=== PATIENT | male | born 1935 | race Caucasian/White ===

== ENCOUNTER 2016-11-16 08:53 | Outpatient (CLI) | payer OTHER | END 2016-11-16 08:55 | LOC: LABRHC 08:53 | PROVIDERS: ATTEND Family Medicine | DX: R31.9 Hematuria, unspecified (principal) | CPT/HCPCS: 87088 ==

== ENCOUNTER 2017-01-08 10:39 | Outpatient (CLI) | payer OTHER | END 2017-01-08 10:40 | LOC: LAB 10:39 | PROVIDERS: ATTEND Family Medicine | DX: R31.9 Hematuria, unspecified (principal) | CPT/HCPCS: 87086 ==

== ENCOUNTER 2017-01-25 08:12 | Outpatient (CLI) | payer OTHER ==
[2017-01-25 08:32] LABS: BASOPHILS % 0.5 (0.0-1.5); EOSINOPHILS % 1.6 % (0.0-6.8); LYMPHOCYTES # 1.7 # k/uL (0.6-4.0); MEAN CORPUSCULAR HEMOGLOBIN 32.8 pg (28.0-34.0); MONOCYTES # 0.6 # k/uL (0.0-0.9); MONOCYTES % 7.9 % (0.0-11.0); NEUTROPHILS # 4.6 # k/uL (1.4-7.7)
[2017-01-25 08:57] LABS: eGFR (African) > 60; eGFR (Non-African) > 60
[2017-02-13 08:38] VITALS: BP 135/90
== END 2017-01-25 08:13 ==
LOC: LAB 08:12
PROVIDERS: ATTEND Physician Assistant
DX: R20.0 Anesthesia of skin (principal); I10 Essential (primary) hypertension
CPT/HCPCS: 36415; 80053; 80061; 85025

== ENCOUNTER 2017-01-30 14:58 | Outpatient (CLI) | payer OTHER ==
--- NOTE | 2017-01-30 17:39 | Diagnostic Imaging Report ---
[facility] [address] [facility].[address] [id number] Report Submission Date: Jan 30, 2017 5:03:07 PM CDT Patient Study Name: SILVIA WEEKS Date: Jan 30, 2017 3:05:56 PM CDT Modality Type: CR Gender: M Description: CHEST : 33 Institution: [facility] Physician: MARIOLA DIGGS Pa and lateral chest Clinical history : Preoperative chest Technique pa and lateral upright Findings: The lung silva are clear. There is cardiomegaly and aortic tortuosity. Thoracic spondylosis and dextroscoliosis are present. No pleural effusions are seen. Aortic arch is calcified. Linear fibrosis or atelectasis is present in the right midlung field Impression: No acute pulmonary disease Cardiomegaly. Tortuous calcified thoracic aorta Electronically signed on Jan 30, 2017 5:03:07 PM CDT by: Marcin LEE
[2017-02-13 08:38] VITALS: BP 135/90
== END 2017-01-30 15:00 ==
LOC: RAD 14:58
PROVIDERS: ATTEND Internal Medicine
DX: Z01.810 Encounter for preprocedural cardiovascular examination (principal)
CPT/HCPCS: 71020

== ENCOUNTER 2017-02-05 14:50 | Inpatient (IN) | payer OTHER ==
--- NOTE | 2017-02-05 15:29 | History and Physical Report ---
History of Present Illnes - History of Present Illness Reason for Visit: Weakness History of Present Illness: Patient presents to SNF after undergoing a R TKR on 01-25-17 at [facility] by Dr. Yip and followed by Dr. Resendiz. Did very well post-op. BM today. Pain controlled. Feels good. No concerns. - Past Medical History Cardiac: AFIB (Not on anticoagulation in past due to hematuria and high risk of falls), HTN Renal/: UTI (Chronic), Benign prostatic enlarg., Hematuria Endocrine: Diabetes (Borderline - A1C 5.9 last week) - Past Surgical History Past Surgical History: Total Knee Replacement (R), TURP - Past Family History Mother Family History: (at 90 y.o - unknown why) Father Family History: Cancer, (in his 30's) - Past Social History Smoke: No Occupation: Retired avery Alcohol: None Drugs: None Lives: Alone - Health Maintenance Health Maintenance: Cholesterol, Influenza Vaccine Influenza Vaccine: Current for this Influenza Season Pneumonia Vaccine: No Resuscitation Status: Resusciation Status Resuscitation Status Full Code Review of Systems - Review of Systems Constitutional: Weakness. negative: Fever Eyes: negative: pain ENT: negative: Ear Pain Respiratory: negative: Cough, Shortness of Breath Cardiovascular: negative: Chest Pain, Light Headedness Gastrointestinal: negative: Nausea Genitourinary: negative: Dysuria Musculoskeletal: negative: Neck Pain Skin: negative: Rash Neurological: Weakness - Medications/Allergies Allergies/Adverse Reactions: Allergies Allergy/AdvReac Type Severity Reaction Status Date / Time Tetanus Vaccines & Toxoid AdvReac Intermediate Generalized Verified 02/05/17 17: 40 Swelling Home Medications: Home Medications Acetaminophen [Tylenol] 650 mg PO Q4 PRN 02/05/17 Aspirin [Julianna] 325 mg PO BID 02/05/17 Celecoxib [Celebrex] 100 mg PO DAILY 02/05/17 Famotidine [Pepcid] 20 mg PO Q12 02/05/17 Finasteride [Proscar] 5 mg PO HS 02/05/17 HYDROcodone /APAP 5/325 [[place] 5/325] 1 - 2 tab PO Q4 PRN 02/05/17 Lisinopril [Zestril] 40 mg PO D 02/05/17 Current Inpatient Medications: Current Inpatient Medications Pneumococcal Polyvalent Vaccine (Pneumovax 23) 25 mcg IM 1T PAULINE Exam - Exam General: Alert, Oriented to Person, Oriented to Place, Oriented to Time, Cooperative, No acute distress HEENT: Atraumatic, PERRLA, EOMI, Mouth Mucous membr. moist/[place] Neck: Normal Range of Motion Lungs: Clear to auscultation, Normal air movement, Speaks full Sentences Cardiovascular: Regular rate, Irregularly Irregular Abdomen: Normal bowel sounds, Soft, No tenderness Integumentary: Normal Extremities: No edema, Other (R knee incision C/D/I. No olga present) Neurological: Normal speech, Strength Equal Bilat, Generalized Weakness Psych/Mental Status: Mental status NL, Mood NL, Appropriate Affect, Intact Judgment Assessment/Plan - Assessment/Plan (1) Total knee replacement status Status: Acute Current Visit: Yes Plan: Admit to SNF for PT/OT. Dr. Yip wants on ASA 325 mg bid for DVT prevention. Add SARANYA beatty. (2) Afib Status: Acute Current Visit: Yes Plan: Has not been on anticoagulation due to "poor candidate." I will investigate this with family. With this new knee, expect him to be more steady. Though he does have a h/o hematuria. (3) Unsteady gait Status: Acute Current Visit: Yes (4) H/O recurrent urinary tract infection Status: Chronic Current Visit: No Plan: Push fluids. VTE Assessment - RISK FACTOR SCORE VTE RISK FACTOR SCORES: AGE OVER 60 YEARS, ELECTIVE KNEE OR HIP ARTHROPLASTY - RISK VTE MODERATE RISK: SCORE OF 2 (RISK PROXIMAL DVT 2-4%) PROPHYAXIS NEEDED
[2017-02-05] MEDS ORDERED: PNEUMOCOCCAL 23-VAL IM SCH (16:00)
[2017-02-05] MEDS ORDERED: HYDROcodone /APAP 5/325 1 EACH TABLET PO PRN ×2 (16:37→17:58)
[2017-02-05] MEDS ORDERED: LISINOPRIL 20 MG TABLET PO ONE (16:38)
[2017-02-05] MEDS: ACETAMINOPHEN 325 MG TABLET PO PRN (16:44)
[2017-02-05] MEDS ORDERED: GABAPENTIN 100 MG CAPSULE PO ONE (18:10)
[2017-02-05 18:29] VITALS: BMI 37.8
[2017-02-05] MEDS: ASPIRIN 325 MG TABLET PO SCH ×2 (19:55→19:57)
[2017-02-05] MEDS: FAMOTIDINE 20 MG TABLET PO SCH (19:57)
[2017-02-05] MEDS: FINASTERIDE 5 MG TABLET PO SCH (19:57)
[2017-02-05] MEDS: HYDROcodone /APAP 5/325 1 EACH TABLET PO PRN (22:34)
[2017-02-06] MEDS: HYDROcodone /APAP 5/325 1 EACH TABLET PO PRN (06:31)
[2017-02-06] MEDS: CELECOXIB 100 MG CAPSULE PO SCH (07:40)
[2017-02-06] MEDS: FAMOTIDINE 20 MG TABLET PO SCH ×2 (07:40→19:26)
[2017-02-06] MEDS: ASPIRIN 325 MG TABLET PO SCH ×2 (07:40→19:25)
[2017-02-06] MEDS: FINASTERIDE 5 MG TABLET PO SCH (19:25)
[2017-02-06] MEDS: GABAPENTIN 100 MG CAPSULE PO SCH (19:28)
[2017-02-06] MEDS: LISINOPRIL 20 MG TABLET PO SCH (19:28)
[2017-02-07] MEDS: HYDROcodone /APAP 5/325 1 EACH TABLET PO PRN ×4 (01:15→19:57)
[2017-02-07] MEDS: ASPIRIN 325 MG TABLET PO SCH ×2 (07:44→19:59)
[2017-02-07] MEDS: FAMOTIDINE 20 MG TABLET PO SCH ×2 (07:44→19:57)
[2017-02-07] MEDS: CELECOXIB 100 MG CAPSULE PO SCH (07:44)
[2017-02-07] MEDS: GABAPENTIN 100 MG CAPSULE PO SCH (19:57)
[2017-02-07] MEDS: LISINOPRIL 20 MG TABLET PO SCH (19:58)
[2017-02-07] MEDS: FINASTERIDE 5 MG TABLET PO SCH (19:58)
[2017-02-08] MEDS: HYDROcodone /APAP 5/325 1 EACH TABLET PO PRN ×4 (00:34→18:34)
[2017-02-08] MEDS: ASPIRIN 325 MG TABLET PO SCH ×2 (08:54→20:38)
[2017-02-08] MEDS: CELECOXIB 100 MG CAPSULE PO SCH (08:55)
[2017-02-08] MEDS: FAMOTIDINE 20 MG TABLET PO SCH ×2 (08:55→20:38)
[2017-02-08] MEDS: FINASTERIDE 5 MG TABLET PO SCH (20:38)
[2017-02-08] MEDS: LISINOPRIL 20 MG TABLET PO SCH (20:38)
[2017-02-08] MEDS: GABAPENTIN 100 MG CAPSULE PO SCH (20:38)
[2017-02-09] MEDS: HYDROcodone /APAP 5/325 1 EACH TABLET PO PRN ×5 (00:02→20:10)
[2017-02-09] MEDS: FAMOTIDINE 20 MG TABLET PO SCH ×2 (08:24→20:09)
[2017-02-09] MEDS: ASPIRIN 325 MG TABLET PO SCH ×2 (08:24→20:09)
[2017-02-09] MEDS: CELECOXIB 100 MG CAPSULE PO SCH (08:24)
[2017-02-09] MEDS: LISINOPRIL 20 MG TABLET PO SCH (20:09)
[2017-02-09] MEDS: GABAPENTIN 100 MG CAPSULE PO SCH (20:09)
[2017-02-09] MEDS: FINASTERIDE 5 MG TABLET PO SCH (20:09)
[2017-02-10] MEDS: HYDROcodone /APAP 5/325 1 EACH TABLET PO PRN ×2 (08:22→19:35)
[2017-02-10] MEDS: ASPIRIN 325 MG TABLET PO SCH ×2 (08:50→19:36)
[2017-02-10] MEDS: CELECOXIB 100 MG CAPSULE PO SCH (08:51)
[2017-02-10] MEDS: FAMOTIDINE 20 MG TABLET PO SCH ×2 (08:51→19:36)
[2017-02-10] MEDS: LISINOPRIL 20 MG TABLET PO SCH (19:36)
[2017-02-10] MEDS: GABAPENTIN 100 MG CAPSULE PO SCH (19:36)
[2017-02-10] MEDS: FINASTERIDE 5 MG TABLET PO SCH (19:36)
[2017-02-11] MEDS: ASPIRIN 325 MG TABLET PO SCH ×2 (09:22→20:01)
[2017-02-11] MEDS: CELECOXIB 100 MG CAPSULE PO SCH (09:23)
[2017-02-11] MEDS: FAMOTIDINE 20 MG TABLET PO SCH ×2 (09:23→20:00)
[2017-02-11] MEDS: HYDROcodone /APAP 5/325 1 EACH TABLET PO PRN (09:24)
[2017-02-11] MEDS: FINASTERIDE 5 MG TABLET PO SCH (20:01)
[2017-02-11] MEDS: LISINOPRIL 20 MG TABLET PO SCH (20:01)
[2017-02-11] MEDS: GABAPENTIN 100 MG CAPSULE PO SCH (20:01)
[2017-02-12] MEDS: FAMOTIDINE 20 MG TABLET PO SCH ×2 (07:44→20:02)
[2017-02-12] MEDS: ASPIRIN 325 MG TABLET PO SCH ×2 (07:44→20:01)
[2017-02-12] MEDS: HYDROcodone /APAP 5/325 1 EACH TABLET PO PRN ×2 (07:44→20:01)
[2017-02-12] MEDS: CELECOXIB 100 MG CAPSULE PO SCH (07:44)
[2017-02-12] MEDS: FINASTERIDE 5 MG TABLET PO SCH (20:01)
[2017-02-12] MEDS: LISINOPRIL 20 MG TABLET PO SCH (20:02)
[2017-02-12] MEDS: GABAPENTIN 100 MG CAPSULE PO SCH (20:05)
[2017-02-13] MEDS: CELECOXIB 100 MG CAPSULE PO SCH (08:28)
[2017-02-13] MEDS: ASPIRIN 325 MG TABLET PO SCH ×2 (08:28→20:49)
[2017-02-13] MEDS: FAMOTIDINE 20 MG TABLET PO SCH ×2 (08:28→20:50)
[2017-02-13 16:00] LABS: ADENOVIRUS F 40/41 Not Detected (Not Detected); ASTROVIRUS Not Detected (Not Detected); C. DIFFICILE (TOXIN A/B) Not Detected (Not Detected); CRYPTOSPORIDIUM Not Detected (Not Detected); CYCLOSPORA CAYETANENSIS Not Detected (Not Detected); ENTAMOEBA HISTOLYTICA Not Detected (Not Detected); GIARDIA LAMBLIA Not Detected (Not Detected); ROTAVIRUS A Not Detected (Not Detected); SAPOVIRUS Not Detected (Not Detected); VIBRIO CHOLERAE Not Detected (Not Detected)
[2017-02-13] MEDS: FINASTERIDE 5 MG TABLET PO SCH (20:49)
[2017-02-13] MEDS: GABAPENTIN 100 MG CAPSULE PO SCH (20:50)
[2017-02-13] MEDS: LISINOPRIL 20 MG TABLET PO SCH (20:50)
[2017-02-14] MEDS: HYDROcodone /APAP 5/325 1 EACH TABLET PO PRN ×2 (08:20→21:25)
[2017-02-14] MEDS: ASPIRIN 325 MG TABLET PO SCH ×2 (09:00→21:25)
[2017-02-14] MEDS: FAMOTIDINE 20 MG TABLET PO SCH ×2 (09:01→21:25)
[2017-02-14] MEDS: CELECOXIB 100 MG CAPSULE PO SCH (09:01)
[2017-02-14] MEDS: FINASTERIDE 5 MG TABLET PO SCH (21:26)
[2017-02-14] MEDS: LISINOPRIL 20 MG TABLET PO SCH (21:26)
[2017-02-14] MEDS: GABAPENTIN 100 MG CAPSULE PO SCH (21:26)
--- NOTE | 2017-02-15 07:51 | Inpatient Progress Note ---
Subjective - Required Recertification Statement I anticipate X number of days because-include discharge plan: 7 - Review of Systems Subjective: Patient doing better. Feels really good today. Had diarrhea for a day. Stool pathogen panel was negative. Objective - Exam Vitals and I&O: Vital Signs Temp 98.0 F 02/14/17 21:00 Pulse 71 02/14/17 21:00 Resp 20 02/14/17 21:00 BP 118/77 02/14/17 21:00 Pulse Ox 96 02/14/17 21:00 Intake & Output 02/14/17 02/14/17 02/15/17 11:59 23:59 11:59 Intake Total 360 560 Balance 360 560 Weight 120.656 kg Intake: Oral 360 560 Other: Voiding Method Toilet Toilet General: Alert, Oriented to Person, Oriented to Place, Oriented to Time, Cooperative, No acute distress Lungs: Clear to auscultation, Normal air movement, Speaks full Sentences - Results Results: Laboratory Results Stl C. cayetanensis PCR Not detected (Not Detected) 02/13/17 10:45 Stool Rotavirus (PCR) Not detected (Not Detected) 02/13/17 10:45 Stool Astrovirus (PCR) Not detected (Not Detected) 02/13/17 10:45 Stool Campylobacter PCR Not detected (Not Detected) 02/13/17 10:45 Stool Cryptosporidium PCR Not detected (Not Detected) 02/13/17 10:45 Stl E.coli Shiga Toxins Not detected (Not Detected) 02/13/17 10:45 Stool E.coli 0157 Cult Not detected (Not Detected) 02/13/17 10:45 Stl Aggregat E Coli PCR Not detected (Not Detected) 02/13/17 10:45 Stl E. histolytica PCR Not detected (Not Detected) 02/13/17 10:45 Stool Giardia Lamblia PCR Not detected (Not Detected) 02/13/17 10:45 Stool Sapovirus (PCR) Not detected (Not Detected) 02/13/17 10:45 Stl P. shigelloides PCR Not detected (Not Detected) 02/13/17 10:45 St Y.enterocolitica PCR Not detected (Not Detected) 02/13/17 10:45 Stool Vibrio (PCR) Not detected (Not Detected) 02/13/17 10:45 Stl Vibrio cholerae PCR Not detected (Not Detected) 02/13/17 10:45 Stl Norovirus GI/GII PCR Not detected (Not Detected) 02/13/17 10:45 Adenovirus (PCR) Not detected (Not Detected) 02/13/17 10:45 C. diff Tox Assay (Ref) Not detected (Not Detected) 02/13/17 10:45 E. coli (PCR) Not detected (Not Detected) 02/13/17 10:45 Escherichia coli 0157 Not detected (Not Detected) 02/13/17 10:45 Salmonella (PCR) Not detected (Not Detected) 02/13/17 10:45 Assessment/Plan - Assessment/Plan (1) Total knee replacement status Status: Acute Current Visit: Yes Plan: Doing well. Cont. PT/OT. (2) Afib Status: Acute Current Visit: Yes (3) Unsteady gait Status: Acute Current Visit: Yes (4) H/O recurrent urinary tract infection Status: Chronic Current Visit: No (5) Diarrhea Status: Acute Current Visit: Yes Qualifiers: Diarrhea type: functional diarrhea Qualified Code(s): K59.1 - Functional diarrhea Plan: Resolved.
[2017-02-15] MEDS: FAMOTIDINE 20 MG TABLET PO SCH ×2 (08:40→20:09)
[2017-02-15] MEDS: CELECOXIB 100 MG CAPSULE PO SCH (08:40)
[2017-02-15] MEDS: ASPIRIN 325 MG TABLET PO SCH ×2 (08:40→20:09)
[2017-02-15] MEDS: HYDROcodone /APAP 5/325 1 EACH TABLET PO PRN (20:08)
[2017-02-15] MEDS: GABAPENTIN 100 MG CAPSULE PO SCH (20:09)
[2017-02-15] MEDS: FINASTERIDE 5 MG TABLET PO SCH (20:09)
[2017-02-15] MEDS: LISINOPRIL 20 MG TABLET PO SCH (20:09)
[2017-02-16] MEDS: ASPIRIN 325 MG TABLET PO SCH ×2 (08:14→20:50)
[2017-02-16] MEDS: FAMOTIDINE 20 MG TABLET PO SCH ×2 (08:14→20:50)
[2017-02-16] MEDS: CELECOXIB 100 MG CAPSULE PO SCH (08:14)
[2017-02-16] MEDS: FINASTERIDE 5 MG TABLET PO SCH (20:50)
[2017-02-16] MEDS: GABAPENTIN 100 MG CAPSULE PO SCH (20:50)
[2017-02-16] MEDS: LISINOPRIL 20 MG TABLET PO SCH (20:50)
[2017-02-16] MEDS: HYDROcodone /APAP 5/325 1 EACH TABLET PO PRN (20:52)
[2017-02-17] MEDS: ASPIRIN 325 MG TABLET PO SCH ×2 (08:51→21:03)
[2017-02-17] MEDS: CELECOXIB 100 MG CAPSULE PO SCH (08:51)
[2017-02-17] MEDS: FAMOTIDINE 20 MG TABLET PO SCH ×2 (08:51→21:04)
[2017-02-17] MEDS: FINASTERIDE 5 MG TABLET PO SCH (21:02)
[2017-02-17] MEDS: LISINOPRIL 20 MG TABLET PO SCH (21:03)
[2017-02-17] MEDS: GABAPENTIN 100 MG CAPSULE PO SCH (21:03)
[2017-02-17] MEDS: ACETAMINOPHEN 325 MG TABLET PO PRN (21:05)
[2017-02-18] MEDS: ASPIRIN 325 MG TABLET PO SCH ×2 (08:59→20:49)
[2017-02-18] MEDS: FAMOTIDINE 20 MG TABLET PO SCH ×2 (08:59→20:49)
[2017-02-18] MEDS: CELECOXIB 100 MG CAPSULE PO SCH (09:00)
[2017-02-18] MEDS: FINASTERIDE 5 MG TABLET PO SCH (20:49)
[2017-02-18] MEDS: LISINOPRIL 20 MG TABLET PO SCH (20:49)
[2017-02-18] MEDS: GABAPENTIN 100 MG CAPSULE PO SCH (20:49)
[2017-02-18] MEDS: HYDROcodone /APAP 5/325 1 EACH TABLET PO PRN (20:51)
[2017-02-19 07:35] VITALS: BP 145/85
--- NOTE | 2017-02-19 08:05 | Discharge Summary ---
Discharge Summary - Discharge Sumary History of Present Illness: Patient presents to SNF after undergoing a R TKR on 01-25-17 at [facility] by Dr. Yip and followed by Dr. Resendiz. Did very well post-op. BM today. Pain controlled. Feels good. No concerns. Condition at Discharge: Stable Home Medications: Ambulatory Orders Medication Instructions Recorded Acetaminophen [Tylenol] 650 mg PO Q4 PRN 02/05/17 Aspirin [Julianna] 325 mg PO BID 02/05/17 Celecoxib [Celebrex] 100 mg PO DAILY 02/05/17 Finasteride [Proscar] 5 mg PO HS 02/05/17 HYDROcodone /APAP 5/325 [[place] 1 - 2 tab PO Q4 PRN 02/05/17 5/325] Lisinopril [Zestril] 40 mg PO D 02/05/17 Gabapentin [Neurontin] 100 mg PO HS capsule 02/18/17 Consultations this Visit: None Procedures this Visit: None Allergies/Adverse Reactions: Allergies Allergy/AdvReac Type Severity Reaction Status Date / Time Tetanus Vaccines & Toxoid AdvReac Intermediate Generalized Verified 02/05/17 17: 40 Swelling Patient Problems: Current Active Problems Problem Status Onset Afib Acute Diarrhea Acute Total knee replacement status Acute Unsteady gait Acute Discharge Summary: Patient came to SNF after R TKR. Did extremely well with PT/OT> Had a day of diarrhea that resolved on it's own. Stool pathogen panel was negative. Still hasn't been started on anticoagulation from afib due to falls. Will consider in the future. Discharged home to do outpatient PT. Hospital Course: Discharge Dx: R TKR. Afib. HTN. BPH. Disposition - home
[2017-02-19] MEDS: CELECOXIB 100 MG CAPSULE PO SCH (08:17)
[2017-02-19] MEDS: FAMOTIDINE 20 MG TABLET PO SCH (08:18)
[2017-02-19] MEDS: ASPIRIN 325 MG TABLET PO SCH (08:18)
== END 2017-02-19 13:00 | disposition home or self-care (01) | DRG 93 ==
LOC: UNDOADMIN 14:50 → SOUTH 14:50
PROVIDERS: ADMIT Family Medicine; ATTEND Family Medicine
DX: R26.81 Unsteadiness on feet (principal); Z96.651 Presence of right artificial knee joint; I48.91 Unspecified atrial fibrillation
CPT/HCPCS: 87507; 90732; 97110; 97112; 97116; 97162; 97165; 97530; 97535; A9270

== ENCOUNTER 2017-03-31 11:07 | Inpatient (IN) | payer OTHER ==
[2017-03-31 12:08] VITALS: BMI 37.1
--- NOTE | 2017-03-31 15:02 | History and Physical Report ---
History of Present Illnes - History of Present Illness Reason for Visit: Weakness History of Present Illness: Patient here for SNF therapy for L TKR on 03-29-[address] Yip. Post operatively did very well. Reports some pain in knee today. Had his R TKR in January. [place] that went better. 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 Drugs: None Lives: Alone - Health Maintenance Health Maintenance: Cholesterol, Influenza Vaccine Influenza Vaccine: Current for this Influenza Season Pneumonia Vaccine: Yes Resuscitation Status: Full Review of Systems - Review of Systems Constitutional: Weakness Eyes: negative: pain ENT: negative: Ear Pain Respiratory: negative: Cough Cardiovascular: negative: Chest Pain Gastrointestinal: negative: Nausea, Vomiting, Constipation Genitourinary: negative: Dysuria Musculoskeletal: Leg Pain Skin: negative: Rash Neurological: Weakness - Medications/Allergies Allergies/Adverse Reactions: Allergies Allergy/AdvReac Type Severity Reaction Status Date / Time Tetanus Vaccines & Toxoid AdvReac Intermediate Generalized Verified 02/05/17 17: 40 Swelling Home Medications: Home Medications Ascorbic Acid [Vitamin C] 500 mg PO BID 03/31/17 Calcium Carb 600Mg/Vit D-3 400 [CALTRATE WITH D-3] 1 each PO DAILY 03/31/17 Cholecalciferol [Vitamin D-3] 2,000 unit PO DAILY 03/31/17 Famotidine [Pepcid] 20 mg PO BID 03/31/17 Tramadol HCl [Ultram] 50 mg PO Q6 PRN 03/31/17 Zinc Sulfate [Zinc Sulfate] 220 mg PO DAILY 03/31/17 Current Inpatient Medications: Current Inpatient Medications Acetaminophen (Tylenol) 325 mg PO Q4 PRN PRN Reason: PAIN Aspirin (Aspirin) 325 mg PO BID [facility] Calcium/Vitamin D (Caltrate With Vit D-3) 1 each PO DAILY PAULINE Celecoxib (Celebrex) 100 mg PO DAILY [facility] Cholecalciferol (Vitamin D-3) 2,000 unit PO DAILY [facility] Enoxaparin Sodium (Lovenox) 30 mg SQ QD PAULINE Stop: 04/14/17 13:59 Famotidine (Pepcid) 20 mg PO BID PAULINE Finasteride (Proscar) 5 mg PO HS [facility] Lisinopril (Prinivil) 40 mg PO DAILY [facility] Miscellaneous (Zinc Sulfate [Zinc Sulfate]) 220 mg PO DAILY [facility] Tramadol HCl (Ultram) 50 mg PO Q6 PRN PRN Reason: PAIN Exam - Exam Vital Signs: Vital Signs (72 hours) 03/31/17 11:07 Temperature 97.2 F L Pulse Rate [ 73 Pulse ox] Respiratory 20 Rate Blood Pressure 178/94 [Right Arm] O2 Sat by Pulse 97 Oximetry General: Alert, Oriented to Person, Oriented to Place, Oriented to Time, Cooperative, No acute distress HEENT: Atraumatic, PERRLA, EOMI, Mouth Mucous membr. moist/[place] Neck: Normal Range of Motion Lungs: Clear to auscultation, Normal air movement, Speaks full Sentences Cardiovascular: Regular rate Abdomen: Normal bowel sounds, Soft, No tenderness Integumentary: Normal, Other (L TKR incision C/D/I) Extremities: No edema Neurological: Generalized Weakness Psych/Mental Status: Mental status NL, Mood NL, Appropriate Affect, Intact Judgment Assessment/Plan - Assessment/Plan (1) Hypertension Status: Chronic Current Visit: No Qualifiers: Hypertension type: essential hypertension Qualified Code(s): I10 - Essential (primary) hypertension Plan: Stable. Watch. (2) Afib Status: Chronic Current Visit: No Qualifiers: Atrial fibrillation type: chronic Qualified Code(s): I48.2 - Chronic atrial fibrillation Plan: Now that patient has had B TKR, I feel his fall risk is much less. Will discuss CVA prophylaxis with him upon discharge. (3) Total knee replacement status Status: Acute Current Visit: Yes Qualifiers: Laterality: left Qualified Code(s): Z96.652 - Presence of left artificial knee joint Plan: Manage pain. Watch bowels. ASA 325 mg bid for DVT prophylaxis per ortho orders. Will place SARANYA hose. (4) Unsteady gait Status: Acute Current Visit: Yes Plan: Admit to SNF for PT/OT VTE Assessment - RISK FACTOR SCORE VTE RISK FACTOR SCORES: AGE OVER 60 YEARS, ELECTIVE KNEE OR HIP ARTHROPLASTY - RISK VTE MODERATE RISK: SCORE OF 2 (RISK PROXIMAL DVT 2-4%) PROPHYAXIS NEEDED
[2017-03-31] MEDS: ENOXAPARIN SODIUM 30 MG/0.3 ML DISP.SYRIN SQ SCH (15:10)
[2017-03-31] MEDS: traMADol HCL 50 MG TABLET PO PRN ×2 (15:10→21:02)
[2017-03-31] MEDS: FINASTERIDE 5 MG TABLET PO SCH (21:02)
[2017-03-31] MEDS: FAMOTIDINE 20 MG TABLET PO SCH (21:02)
[2017-03-31] MEDS: ASPIRIN 325 MG TABLET PO SCH (21:03)
[2017-04-01] MEDS: traMADol HCL 50 MG TABLET PO PRN ×3 (06:27→18:05)
[2017-04-01] MEDS: ACETAMINOPHEN 325 MG TABLET PO PRN ×2 (08:34→18:05)
[2017-04-01] MEDS: ASPIRIN 325 MG TABLET PO SCH ×2 (08:35→20:27)
[2017-04-01] MEDS: CALCIUM CARB 600MG/VIT D-3 400 1 EACH TABLET PO SCH (08:35)
[2017-04-01] MEDS: FAMOTIDINE 20 MG TABLET PO SCH ×2 (08:36→20:27)
[2017-04-01] MEDS: LISINOPRIL 20 MG TABLET PO SCH (08:36)
[2017-04-01] MEDS: CELECOXIB 100 MG CAPSULE PO SCH (08:36)
[2017-04-01] MEDS: CHOLECALCIFEROL 1,000 UNIT TABLET PO SCH (08:36)
[2017-04-01] MEDS: ZINC SULFATE 220 MG PO SCH (08:50)
[2017-04-01] MEDS ORDERED: LISINOPRIL 40 MG PO SCH (09:00)
[2017-04-01] MEDS: ENOXAPARIN SODIUM 30 MG/0.3 ML DISP.SYRIN SQ SCH (13:49)
[2017-04-01] MEDS: FINASTERIDE 5 MG TABLET PO SCH (20:27)
[2017-04-02] MEDS: ACETAMINOPHEN 325 MG TABLET PO PRN ×2 (03:25→07:44)
[2017-04-02] MEDS: traMADol HCL 50 MG TABLET PO PRN (03:25)
[2017-04-02] MEDS: ASPIRIN 325 MG TABLET PO SCH ×2 (08:54→21:24)
[2017-04-02] MEDS: CALCIUM CARB 600MG/VIT D-3 400 1 EACH TABLET PO SCH (08:55)
[2017-04-02] MEDS: CELECOXIB 100 MG CAPSULE PO SCH (08:55)
[2017-04-02] MEDS: FAMOTIDINE 20 MG TABLET PO SCH ×2 (08:55→21:24)
[2017-04-02] MEDS: LISINOPRIL 20 MG TABLET PO SCH (08:58)
[2017-04-02] MEDS: ENOXAPARIN SODIUM 30 MG/0.3 ML DISP.SYRIN SQ SCH (14:07)
[2017-04-02] MEDS: CHOLECALCIFEROL 1,000 UNIT TABLET PO SCH (14:07)
[2017-04-02] MEDS: ZINC SULFATE 220 MG PO SCH (18:56)
[2017-04-02] MEDS: FINASTERIDE 5 MG TABLET PO SCH (21:24)
[2017-04-02] MEDS: HYDROcodone /APAP 5/325 1 EACH TABLET PO PRN (21:26)
[2017-04-03] MEDS: HYDROcodone /APAP 5/325 1 EACH TABLET PO PRN ×3 (02:09→23:30)
--- NOTE | 2017-04-03 07:40 | Inpatient Progress Note ---
Subjective - Required Recertification Statement I anticipate X number of days because-include discharge plan: 10 - Review of Systems Subjective: Patient is doing ok. This TKR hurts more than the last but tolerating fine. Objective - Exam Vitals and I&O: Vital Signs Temp 98.2 F 04/02/17 20:58 Pulse 84 04/02/17 21:00 Resp 16 04/02/17 21:00 BP 145/87 04/02/17 20:58 Pulse Ox 98 04/02/17 20:58 Intake & Output 04/02/17 04/02/17 04/03/17 11:59 23:59 11:59 Intake Total 240 180 Balance 240 180 Weight 116.12 kg Intake: Oral 240 180 Other: Voiding Method Toilet Toilet # Voids 2 4 # Bowel Movements 0 General: Alert, Oriented to Person, Oriented to Place, Oriented to Time, Cooperative, No acute distress Lungs: Clear to auscultation Cardiovascular: Irregularly Irregular Assessment/Plan - Assessment/Plan (1) Hypertension Status: Chronic Current Visit: No Qualifiers: Hypertension type: essential hypertension Qualified Code(s): I10 - Essential (primary) hypertension (2) Afib Status: Chronic Current Visit: No Qualifiers: Atrial fibrillation type: chronic Qualified Code(s): I48.2 - Chronic atrial fibrillation (3) Total knee replacement status Status: Acute Current Visit: Yes Qualifiers: Laterality: left Qualified Code(s): Z96.652 - Presence of left artificial knee joint (4) Unsteady gait Status: Acute Current Visit: Yes Plan: Cont. PT/OT. ASA for DVT prevention.
[2017-04-03] MEDS: ACETAMINOPHEN 325 MG TABLET PO PRN ×2 (09:06→23:30)
[2017-04-03] MEDS: CHOLECALCIFEROL 1,000 UNIT TABLET PO SCH (09:06)
[2017-04-03] MEDS: CALCIUM CARB 600MG/VIT D-3 400 1 EACH TABLET PO SCH (09:06)
[2017-04-03] MEDS: ASPIRIN 325 MG TABLET PO SCH ×2 (09:06→20:27)
[2017-04-03] MEDS: LISINOPRIL 20 MG TABLET PO SCH (09:06)
[2017-04-03] MEDS: FAMOTIDINE 20 MG TABLET PO SCH ×2 (09:06→20:27)
[2017-04-03] MEDS: CELECOXIB 100 MG CAPSULE PO SCH (09:17)
[2017-04-03] MEDS: ZINC SULFATE 220 MG PO SCH (09:17)
[2017-04-03] MEDS: ENOXAPARIN SODIUM 30 MG/0.3 ML DISP.SYRIN SQ SCH (13:05)
[2017-04-03] MEDS: FINASTERIDE 5 MG TABLET PO SCH (20:27)
[2017-04-03] MEDS: traMADol HCL 50 MG TABLET PO PRN (23:30)
[2017-04-04] MEDS: ACETAMINOPHEN 325 MG TABLET PO PRN ×2 (06:24→18:26)
[2017-04-04] MEDS: traMADol HCL 50 MG TABLET PO PRN ×2 (06:24→13:18)
[2017-04-04] MEDS: CALCIUM CARB 600MG/VIT D-3 400 1 EACH TABLET PO SCH (09:16)
[2017-04-04] MEDS: CELECOXIB 100 MG CAPSULE PO SCH (09:16)
[2017-04-04] MEDS: ASPIRIN 325 MG TABLET PO SCH ×2 (09:16→19:53)
[2017-04-04] MEDS: FAMOTIDINE 20 MG TABLET PO SCH ×2 (09:17→19:53)
[2017-04-04] MEDS: CHOLECALCIFEROL 1,000 UNIT TABLET PO SCH (09:18)
[2017-04-04] MEDS: LISINOPRIL 20 MG TABLET PO SCH (09:18)
[2017-04-04] MEDS: ZINC SULFATE 220 MG PO SCH (09:19)
[2017-04-04] MEDS: ENOXAPARIN SODIUM 30 MG/0.3 ML DISP.SYRIN SQ SCH (14:34)
[2017-04-04] MEDS: FINASTERIDE 5 MG TABLET PO SCH (19:53)
[2017-04-05] MEDS: HYDROcodone /APAP 5/325 1 EACH TABLET PO PRN ×5 (01:40→20:54)
[2017-04-05] MEDS: ASPIRIN 325 MG TABLET PO SCH ×2 (07:52→20:53)
[2017-04-05] MEDS: CALCIUM CARB 600MG/VIT D-3 400 1 EACH TABLET PO SCH (07:52)
[2017-04-05] MEDS: CHOLECALCIFEROL 1,000 UNIT TABLET PO SCH (07:53)
[2017-04-05] MEDS: CELECOXIB 100 MG CAPSULE PO SCH (07:53)
[2017-04-05] MEDS: FAMOTIDINE 20 MG TABLET PO SCH ×2 (07:53→20:53)
[2017-04-05] MEDS: LISINOPRIL 20 MG TABLET PO SCH (07:53)
[2017-04-05] MEDS: ZINC SULFATE 220 MG PO SCH (07:54)
[2017-04-05] MEDS: ENOXAPARIN SODIUM 30 MG/0.3 ML DISP.SYRIN SQ SCH (13:15)
[2017-04-05] MEDS ORDERED: TUBERCULIN,PURIF.PROT.DERIV. 5 TU/0.1 ML ID ONE (16:00)
[2017-04-05] MEDS: TUBERCULIN,PURIF.PROT.DERIV. 5 TU/0.1 ML ID SCH ×2 (16:14→19:41)
[2017-04-05] MEDS: FINASTERIDE 5 MG TABLET PO SCH (20:53)
[2017-04-06] MEDS: ASPIRIN 325 MG TABLET PO SCH ×2 (08:24→21:37)
[2017-04-06] MEDS: CELECOXIB 100 MG CAPSULE PO SCH (08:25)
[2017-04-06] MEDS: FAMOTIDINE 20 MG TABLET PO SCH ×2 (08:25→21:37)
[2017-04-06] MEDS: CALCIUM CARB 600MG/VIT D-3 400 1 EACH TABLET PO SCH (08:25)
[2017-04-06] MEDS: LISINOPRIL 20 MG TABLET PO SCH (08:26)
[2017-04-06] MEDS: CHOLECALCIFEROL 1,000 UNIT TABLET PO SCH (08:27)
[2017-04-06] MEDS: HYDROcodone /APAP 5/325 1 EACH TABLET PO PRN ×3 (08:28→21:38)
[2017-04-06] MEDS: ZINC SULFATE 220 MG PO SCH (08:30)
[2017-04-06] MEDS: FINASTERIDE 5 MG TABLET PO SCH (21:37)
[2017-04-07] MEDS: HYDROcodone /APAP 5/325 1 EACH TABLET PO PRN (05:47)
[2017-04-07] MEDS: ASPIRIN 325 MG TABLET PO SCH (09:35)
[2017-04-07] MEDS: CELECOXIB 100 MG CAPSULE PO SCH (09:35)
[2017-04-07] MEDS: CALCIUM CARB 600MG/VIT D-3 400 1 EACH TABLET PO SCH (09:35)
[2017-04-07] MEDS: ZINC SULFATE 220 MG PO SCH (09:36)
[2017-04-07] MEDS: FAMOTIDINE 20 MG TABLET PO SCH (09:36)
[2017-04-07] MEDS: CHOLECALCIFEROL 1,000 UNIT TABLET PO SCH (09:36)
[2017-04-07] MEDS: LISINOPRIL 20 MG TABLET PO SCH (09:59)
[2017-04-07 13:31] VITALS: BP 148/78
--- NOTE | 2017-04-07 21:22 | Discharge Summary ---
Discharge Summary - Discharge Sumary History of Present Illness: Patient here for SNF therapy for L TKR on 03-29-[address] Yip. Post operatively did very well. Reports some pain in knee today. Had his R TKR in January. [place] that went better. Condition at Discharge: Stable Consultations this Visit: None Procedures this Visit: None Allergies/Adverse Reactions: Allergies Allergy/AdvReac Type Severity Reaction Status Date / Time Tetanus Vaccines & Toxoid AdvReac Intermediate Generalized Verified 02/05/17 17: 40 Swelling Discharge Summary: Patient was admitted after undergoing L TKR. He did well with therapies. Pain controlled but harder to do this time compared to R TKR several months ago. BP remained stable. Plan is to start on anticoagulation for Afib since risk of falls greatly reduced with B TKR and therapy. Patient not ready to go home so discharge to [facility]. Hospital Course: Discharge Dx: L TKR. Afib. HTN. BPH. Disposition - [facility]
== END 2017-04-07 13:20 | disposition short-term general hospital (02) | DRG 566 ==
LOC: SOUTH 11:07
PROVIDERS: ADMIT Family Medicine; ATTEND Family Medicine
DX: Z96.652 Presence of left artificial knee joint (principal); Z96.651 Presence of right artificial knee joint; I48.91 Unspecified atrial fibrillation; I10 Essential (primary) hypertension; N40.0 Benign prostatic hyperplasia without lower urinary tract symptoms
CPT/HCPCS: 86580; 97110; 97112; 97116; 97530; 97535; A9270; J1650

== ENCOUNTER 2017-08-16 09:08 | Outpatient (CLI) | payer OTHER ==
[2017-08-16 09:35] LABS: BASOPHILS % 0.8 (0.0-1.5); EOSINOPHILS % 0.4 % (0.0-6.8); MEAN CORPUSCULAR HEMOGLOBIN 30.4 pg (28.0-34.0); MEAN CORPUSCULAR VOLUME 91.5 fl (80.0-100.0); MONOCYTES % 7.4 % (0.0-11.0); NEUTROPHILS # 6.6 # k/uL (1.4-7.7)
[2017-08-16 10:05] LABS: eGFR (African) > 60; eGFR (Non-African) > 60
== END 2017-08-16 09:10 ==
LOC: CARD 09:08
PROVIDERS: ATTEND Family Medicine
DX: R07.9 Chest pain, unspecified (principal)
CPT/HCPCS: 36415; 80053; 82550; 84484; 85025

== ENCOUNTER 2017-08-21 13:15 | Outpatient (CLI) | payer OTHER | END 2017-08-21 13:16 | LOC: CARD 13:15 | PROVIDERS: ATTEND Internal Medicine Cardiovascular Disease | DX: K21.9 Gastro-esophageal reflux disease without esophagitis (principal); I48.91 Unspecified atrial fibrillation; I10 Essential (primary) hypertension; E11.9 Type 2 diabetes mellitus without complications | CPT/HCPCS: G0463 ==

== ENCOUNTER 2017-12-18 13:21 | Outpatient (CLI) | payer OTHER ==
[2017-12-18 13:48] LABS: MEAN CORPUSCULAR HEMOGLOBIN 31.8 pg (28.0-34.0); MEAN CORPUSCULAR VOLUME 96.2 fl (80.0-100.0)
[2017-12-18 14:11] LABS: APPEARANCE,URINE Cloudy (CLEAR); COLOR,URINE Amber (YELLOW); OCCULT BLOOD,URINE 3+ (NEGATIVE); PH URINE 5.5 (5.0 - 8.0); UROBILINOGEN URINE 0.2 Eu (0.2-1.0)
[2017-12-18 14:13] LABS: AMORPHOUS SEDIMENT,UR FEW (NEGATIVE)
== END 2017-12-18 13:22 ==
LOC: LAB 13:21
PROVIDERS: ATTEND Family Medicine
DX: R31.0 Gross hematuria (principal)
CPT/HCPCS: 36415; 81002; 85027; 87086

== ENCOUNTER 2019-04-21 14:00 | Outpatient (CLI) | payer OTHER | END 2019-04-21 14:05 | disposition home or self-care (01) | LOC: LABRHC 14:00 | PROVIDERS: ATTEND Family Medicine | DX: R35.0 Frequency of micturition (principal) | CPT/HCPCS: 87086 ==